=== PATIENT | male | born 1970 | race Caucasian/White ===

== ENCOUNTER → 2024-02-24 10:16 | Outpatient (REF) | payer OTHER, SELFPAY | LOC: RAD 10:16 | PROVIDERS: ATTENDING PHYSICIAN Internal Medicine Geriatric Medicine | DX: I10 Essential (primary) hypertension (principal); E03.9 Hypothyroidism, unspecified; Z13.31 Encounter for screening for depression; E04.1 Nontoxic single thyroid nodule | CPT/HCPCS: 76536 ==